=== PATIENT | female | born 1990 | race Two or more races ===

== ENCOUNTER 2016-09-09 01:30 | Emergency (ER) | payer BC, OTHER ==
[2016-09-09] MEDS ORDERED: IOPAMIDOL 370 (76%) 100 ML VIAL IV ONE (01:31)
[2016-09-09] MEDS ORDERED: MAALOX/LIDO2%VISC/SIMETHICONE 40 ML BOT ONE (01:51)
[2016-09-09 02:17] LABS: ABSOLUTE NEUTROPHIL COUNT 3.8 K/mm3 (1.8-7.7); BASO % 0.3 % (0.2-1.0); EOS # 0.3 (0.0-0.5); HEMATOCRIT 36.7 % (37.0-47.0); HEMOGLOBIN 12.2 gm/l (12.0-16.0); IMM NEUT% 0.3 % (0-1); LYMPH # 2.5 (1.0-4.8); LYMPH % 33.8 % (15-45); MEAN CELL VOLUME 88.4 fl (81.0-99.0); MEAN CORPUSCULAR HEMOGLOBIN 29.4 pg (27.0-31.0); MEAN CORPUSCULAR HGB CONC 33.2 g/dl (33.0-37.0); MEAN PLATELET VOLUME 10.3 fl (7.4-10.4); MONO # 0.7 (0.0-0.8); MONO % 9.5 % (4-12); NEUT % 52.1 % (43-75); PLATELET COUNT 280 K/mm3 (130-400); RED CELL DISTRIBUTION WIDTH 12.4 % (11.5-14.5)
[2016-09-09 02:30] LABS: ALB/GLOB RATIO 1.3 (>1.0); CALCIUM 8.9 mg/dL (8.6-10.3)
--- NOTE | 2016-09-09 09:01 | RAD ---
CHEST - 2 VIEWS COMPARISON: Chest 2 views, 04/11/2015 HISTORY: Left-sided chest pain and left arm pain. FINDINGS: Views: Frontal and lateral chest Lungs: Normal Heart and vessels: Normal Trachea and bronchi: Normal Mediastinum and terri: Normal Costophrenic sulci: Normal Chest wall and bones: Normal. Upper abdomen: Normal. IMPRESSION: Negative 2 view chest.
--- NOTE | 2016-09-09 11:52 | CT ---
CTA CHEST FOR PE COMPARISON: Chest 2 views, 09/09/2016 HISTORY: Left arm and left chest pain since 1500 hours. Recent diarrhea and vomiting. Technique: Intravenous injection 80 mL of Isovue 37. Using a [employer] Aquilion [address] scanner, following a CT angiogram protocol, images obtained through the thorax. Under concurrent supervision and interpretation, requiring a separate 3-D workstation, the technologist created 3-D CT angiograms. An automated dose reduction technique was used to minimize patient radiation dose. Dose information: CTDIvol (mGy): 9.60, 85.60, 41.00 DLP(mGycm): 1444.50 FINDINGS: Pulmonary arteries and veins: Adequate contrast opacification. No pulmonary embolism. Aorta: Normal Heart and coronary arteries: Normal. Lungs: Normal. Trachea and bronchi: Normal. Mediastinum and terri: Normal. Pleura and pericardium: Normal. Chest wall: Normal. Spine: Normal. Upper abdomen: Contracted gallbladder. 3-D CT angiogram: Normal. IMPRESSION: 1. CT pulmonary angiogram negative for pulmonary embolus. 2. Normal lungs. 3. Contracted gallbladder. Preliminary report by [facility] radiologist Gibson Young M.D. 09/09/2016 at 04:24
== END 2016-09-09 05:20 | disposition home or self-care (01) ==
LOC: ED 01:30
DX: R07.9 Chest pain, unspecified (principal); R20.2 Paresthesia of skin
CPT/HCPCS: 85379; 85025; 80053; 84484; 71020; 71275; 99284 ×2; 93005; A9270; Q9967